=== PATIENT | male | born 1995 | race Caucasian/White ===

== ENCOUNTER 2021-03-03 10:28 | Outpatient (REF) | payer OTHER, SELFPAY ==
--- NOTE | ~2021-03-03 | XR_ITS ---
EXAMINATION: XR ABDOMEN KUB CLINICAL INDICATION: Abdominal pain. COMPARISON: CT scan of 03/30/20. TECHNIQUE: AP view of the abdomen. FINDINGS: There is a normal nonobstructive bowel gas pattern. There is no significant stool burden. The lung bases are clear. There is a 0.8 cm calculus overlying the lower pole of the right kidney not significantly changed from prior CT scan. XR/XR KUB IMPRESSION: No obstruction. Stable appearance of calculus lower pole left kidney.
[2021-03-03 13:33] LABS: Eosinophils Absolute Auto 0.1 X10*3/uL (0.0-0.4); Imm Gran Abs Auto 0.01 X10*3/uL (0.00-0.03); Imm Gran Pct Auto 0.2 % (0.0-0.4); MANUAL DIFF FLAG NO; Red Cell Distribution Width 12.8 % (11.0-16.0); SCAN SMEAR FLAG 1
[2021-03-03 13:35] LABS: Basophils Percent Auto 0.4 % (0-2); Eosinophils Percent Auto 2.7 % (0-4); Hematocrit 45.4 % (42-52); Hemoglobin 14.8 g/dl (14.0-18.0); Lymphocytes Absolute Auto 1.5 X10*3/uL (1.2-4.9); Lymphocytes Percent Auto 28.2 % (20-40); Mean Corpuscular HGB Conc 32.6 g/dl (31.0-36.0); Mean Corpuscular Hemoglobin 30.1 pg (27.0-33.0); Mean Corpuscular Volume 92.5 fL (80-98); Mean Platelet Volume 13.4 fL (9.4-12.4); Monocytes Absolute Auto 0.6 X10*3/uL (0.1-1.2); Monocytes Percent Auto 10.7 % (2-11); Neutrophils Percent Auto 57.8 % (45-73); Platelet Count 169 X10*3/uL (160-400); Red Blood Count 4.91 X10*6/uL (4.60-5.80); White Blood Count 5.2 X10*3/uL (4.8-10.8)
[2021-03-03 13:36] LABS: PLT ABN DIST 1
[2021-03-03 13:46] LABS: Estimated Average Glucose 103 mg/dL; Hemoglobin A1c % 5.2 %
[2021-03-03 13:57] LABS: Alanine Aminotransferase 51 U/L (0-40); Albumin Level 4.6 g/dL (3.5-5.0); Alkaline Phosphatase 60 U/L (39-117); Anion Gap 14 (12-20); Aspartate Amino Transferase 41 U/L (5-37); Bilirubin Direct 0.4 mg/dL (0.0-0.5); Bilirubin Total 1.1 mg/dL (0.0-1.0); Blood Urea Nitrogen 9 mg/dL (9-16); Calcium 9.5 mg/dL (8.4-10.2); Carbon Dioxide 24 mmol/L (22-29); Chloride 106 mmol/L (96-108); Cholesterol 250 mg/dL; Estimated Glomerular Filt Rate > 60; Glucose Fasting 94 mg/dL (60-99); HDL Cholesterol 45 mg/dL; LDL Cholesterol Calculated 185 mg/dl; Potassium 4.1 mmol/L (3.3-5.1); Sodium 140 mmol/L (135-145); Total Protein 7.7 g/dL (6.5-8.0); Triglycerides 100 mg/dL
[2021-03-03 14:17] LABS: TSH reflex Free T4 0.48 uIU/mL (0.32-4.0)
== END 2021-03-03 10:29 | disposition home or self-care (01) ==
LOC: HO.HMGCX 10:28
PROVIDERS: PCP Physician Assistant; Visit Provider Nurse Practitioner Family
DX: Z13.29 Encounter for screening for other suspected endocrine disorder (principal); Z13.220 Encounter for screening for lipoid disorders; R10.9 Unspecified abdominal pain; E66.01 Morbid (severe) obesity due to excess calories; Z68.43 Body mass index [BMI] 50.0-59.9, adult; I10 Essential (primary) hypertension
CPT/HCPCS: 36415; 74018; 80048; 80053; 80061; 80076; 82248; 83036; 84443; 85025; 85027

== ENCOUNTER 2021-09-27 18:27 | Emergency (ER) | payer OTHER, SELFPAY ==
--- NOTE | ~2021-09-27 | CT_ITS ---
EXAMINATION: CT ABDOMEN AND PELVIS WITHOUT CONTRAST CLINICAL INFORMATION: Left flank pain COMPARISON: 03/30/2020 TECHNIQUE: Multidetector volumetric imaging was performed from the superior aspect of the liver through the pubic symphysis. Sagittal and coronal reformatted images were obtained on the technologist's workstation. This CT examination was performed using dose optimization techniques as appropriate, variously including the following: *Automated exposure control *Adjustment of mA and/or kV according to patient size (this includes techniques or standardized protocols for targeted exams where dose is matched to indication/reason for exam; i.e. extremities or head) *Use of iterative reconstruction technique DLP: 949 mGy-cm FINDINGS: LUNG BASES: The visualized lung bases are unremarkable. LIVER, GALLBLADDER, AND BILIARY TREE: Liver normal in size, contour and morphology. Diffuse hepatic steatosis. No focal liver lesions. No intra or extra hepatic biliary dilatation. Gallbladder unremarkable. PANCREAS: Unremarkable. SPLEEN: Unremarkable. ADRENAL GLANDS: Unremarkable. KIDNEYS AND URETERS: The kidneys are normal in size, shape, and attenuation. There is a stable 9 mm (maximal diameter) 800 Hounsfield unit nonobstructing calculus in the lower pole left kidney and a punctate nonobstructive calculus in the upper pole right kidney. No hydronephrosis or hydroureter. No perinephric stranding. BLADDER: Unremarkable. GASTROINTESTINAL TRACT: The small and large bowel are unremarkable. The appendix is unremarkable. ABDOMINAL WALL: No significant hernia is appreciated. LYMPH NODES: Normal. VASCULAR: Unremarkable. PELVIC VISCERA: Unremarkable. OSSEOUS STRUCTURES: No acute or suspicious osseous abnormalities. CT/CT abdomen pelvis wo con IMPRESSION: * No acute findings within the abdomen or pelvis to explain the patient's symptomatology. * Hepatic steatosis. * No significant change in the bilateral nonobstructive intrarenal calculi. * No ureteral calculi or hydronephrosis.
[2021-09-27 19:49] VITALS: BP 122/68; PULSE 83; RESP 16; TEMP 37.1; O2SAT 100; BMI 50.5
[2021-09-27 20:12] LABS: MANUAL DIFF FLAG NO
[2021-09-27 20:14] LABS: Basophils Percent Auto 0.3 % (0-2); Eosinophils Percent Auto 0.3 % (0-4); Hematocrit 42.7 % (42.0-52.0); Hemoglobin 14.1 g/dl (14.0-18.0); Imm Gran Abs Auto 0.01 X10*3/uL (0.00-0.03); Imm Gran Pct Auto 0.1 % (0.0-0.4); Lymphocytes Absolute Auto 1.5 X10*3/uL (1.2-4.9); Lymphocytes Percent Auto 18.9 % (20-40); Mean Corpuscular Hemoglobin 30.1 pg (27.0-33.0); Mean Platelet Volume 12.5 fL (9.4-12.4); Monocytes Absolute Auto 0.7 X10*3/uL (0.1-1.2); Monocytes Percent Auto 9.4 % (2-11); Neutrophils Absolute Auto 5.5 x10*3/uL (2.0-8.3); Platelet Count 214 X10*3/uL (160-400); Red Blood Count 4.69 X10*6/uL (4.60-5.80); Red Cell Distribution Width 12.5 % (11.0-16.0); White Blood Count 7.7 X10*3/uL (4.8-10.8)
[2021-09-27 20:27] LABS: Alanine Aminotransferase 31 U/L (0-40); Albumin Level 4.6 g/dL (3.5-5.0); Alkaline Phosphatase 60 U/L (39-117); Anion Gap 12 (12-20); Aspartate Amino Transferase 32 U/L (5-37); Bilirubin Total 0.6 mg/dL (0.0-1.0); Blood Urea Nitrogen 10 mg/dL (9-16); Calcium 9.9 mg/dL (8.4-10.2); Carbon Dioxide 27 mmol/L (22-29); Chloride 103 mmol/L (96-108); Creatinine Clr Calc Pharmacy 146.3; Estimated Glomerular Filt Rate > 60; Glucose Random 119 mg/dL (60-115); Potassium 4.1 mmol/L (3.3-5.1); Sodium 138 mmol/L (135-145); Total Protein 8.1 g/dL (6.5-8.0)
--- NOTE | 2021-09-28 01:29 | ED_ITS ---
HPI - Abdominal Pain General Chief Complaint: Abdominal Pain Stated Complaint: cramps and constipation Time Seen by Provider: 09/28/21 01:29 Source: patient Mode of arrival: ambulatory Limitations: no limitations History of Present Illness HPI narrative: Patient with abdominal cramping that he feels in the back. maria elena pineda states that his pain was bothering him more than usual. Patient states that he had a prior CT scan that showed kidney stones. No Hematuria, no dysuria, no fever no vomiting. patient feels that he has been constipated for months. MD elicited complaint: abdominal pain and other (back pain) Pertinent past history: constipation and kidney stones Onset (ago): month(s) Pain Consistency: intermittent Location: epigastric Severity: mild Quality: aching Radiation: none Relieving factors: other (bowel movement.) Associated symptoms: constipation Related Data Allergies Allergy/AdvReac Type Severity Reaction Status Date / Time No Known Allergies Allergy Verified 09/27/21 19:55 Review of Systems Constitutional: Reports no additional constitutional complaints Eyes: Reports no additional eye complaints Denies dizziness Cardiovascular: Reports no additional cardiovascular complaints Respiratory: Reports as per HPI Gastrointestinal: Reports no additional gastrointestinal complaints Musculoskeletal: Reports no additional musculoskeletal complaints Skin/Breast: Denies rash Reports system reviewed and no additional complaints, except as documented, Denies dizziness and Denies Sensory deficit (Neuro) Psychiatric: Denies anxiety Physical Exam Vital Signs: Vital Signs: Last Vital Signs Temp 98.8 F 09/27/21 19:49 Pulse 92 09/28/21 01:43 Resp 16 09/27/21 19:49 BP 157/76 H 09/28/21 01:43 Pulse Ox 98 09/28/21 01:43 BMI result Body Mass Index 50.5 Const: General: healthy appearing Nutritional Appearance: obese Orienta tion/consciousness: oriented to person and patient oriented x3 Limitations: no limitations HENMT: Head: Yes normal to inspection Ears: external ears normal General nose exam: Normal external nose present Mouth: Normal oral and palatal mucosa present and oropharynx normal Throat: Yes posterior oropharynx normal Eyes: General: appearance normal, both eyes and all related structures Neck: Other: supple Neck: Yes normal visual inspection Chest: Chest palpation & inspection: normal inspection of the chest Resp: Auscultation: clear to auscultation bilaterally Cardio: Jugular venous distension: no JVD Rate: regular rate Rhythm: regular rhythm Heart sounds: S1 normal heart sound present and S2 normal heart sound present GI: Inspection: Yes normal to inspection Palpation (GI): Soft to palpation, nontender and No hepatosplenomegaly present Auscultation: normal bowel sounds : General: Yes no CVA tenderness Back/Spine/Pelvis: Back: no CVA tenderness Skin: General skin exam: no rashes or lesions noted Neuro: General: oriented to person and patient oriented x3 Cranial nerves: Yes CN's II-XII intact bilaterally Motor exam (neuro): 5/5 motor strength present throughout Sensory Exam: No Sensory deficit (Neuro) Extrem: General: Yes normal to inspection Psych: Appearance: grossly normal Course Reevaluation(s) Reevaluation #1: labs are normal, UA normal, CT show nonobstructing kidney stone. No acute findings that explain the patients discomfort. Time: 03:00 MDM - Abdominal Pain Lab Data Result diagrams: 09/27/21 20:06 09/27/21 20:06 Labs: Lab Results 09/27/21 09/27/21 09/28/21 Range/Units 20:06 20:06 01:31 WBC 7.7 (4.8-10.8) X10*3/uL RBC 4.69 (4.60-5.80) X10*6/uL Hgb 14.1 (14.0-18.0) g/dl Hct 42.7 (42.0-52.0) % MCV 91.0 (80.0-98.0) fL MCH 30.1 (27.0-33.0) pg MCHC 33.0 (31.0-36.0) g/dl RDW 12.5 (11.0-16.0) % Plt Count 214 (160-400) X10*3/uL MPV 12.5 H (9.4-12.4) fL Immature Gran % (Auto) 0.1 (0.0-0.4) % Neut % (Auto) 71.0 (45-73) % Lymph % (Auto) 18.9 L (20-40) % [place] % (Auto) 9.4 (2-11) % Eos % (Auto) 0.3 (0-4) % Baso % (Auto) 0.3 (0-2) % Lymph # (Auto) 1.5 (1.2-4.9) X10*3/uL [place] # (Auto) 0.7 (0.1-1.2) X10*3/uL Eos # (Auto) 0.0 (0.0-0.4) X10*3/uL Baso # (Auto) 0.0 (0.0-0.2) X10*3/uL Abs Immat Gran (auto) 0.01 (0.00-0.03) X10*3/uL Absolute Neuts (auto) 5.5 (2.0-8.3) x10*3/uL Absolute Nucleated RBC 0.000 (0.0-0.012) X10*3/uL Nucleated RBC % (auto) 0.0 (0.0-0.2) /100WBC Sodium 138 (135-145) mmol/L Potassium 4.1 (3.3-5.1) mmol/L Chloride 103 (96-108) mmol/L Carbon Dioxide 27 (22-29) mmol/L Anion Gap 12 (12-20) BUN 10 (9-16) mg/dL Creatinine 0.93 (0.5-1.4) mg/dL Estim Creat Clear Calc 146.3 Estimated GFR > 60 Random Glucose 119 H (60-115) mg/dL Calcium 9.9 (8.4-10.2) mg/dL Total Bilirubin 0.6 (0.0-1.0) mg/dL AST 32 (5-37) U/L ALT 31 (0-40) U/L Alkaline Phosphatase 60 (39-117) U/L Total Protein 8.1 H (6.5-8.0) g/dL Albumin 4.6 (3.5-5.0) g/dL Urine Color YELLOW Urine Appearance CLEAR Urine pH 5.5 (5.0-8.0) Ur Specific [place] >= 1.030 H (1.005-1.025) Urine Protein TRACE (NEG-TRACE) MG/DL Urine Glucose (UA) NEG (NEG) MG/DL Urine Ketones 5 (NEG) MG/DL Urine Blood TRACE (NEG) Urine Nitrite NEG (NEG) Ur Leukocyte Esterase NEG (NEG) Urine RBC 1-4 (0) /HPF Urine WBC 1-4 (0-4) /HPF Ur Squamous Epith Cells 1+ /LPF Calcium Phosphate Cryst TRACE /LPF Urine Bacteria TRACE /LPF Urine Mucus 3+ /LPF Imaging Data CT scan - abdomen: Radiologist's impression: CT/CT abdomen pelvis wo con IMPRESSION: *? No acute findings within the abdomen or pelvis to explain the patient's symptomatology. *? Hepatic steatosis. *? No significant change in the bilateral nonobstructive intrarenal calculi. *? No ureteral calculi or hydronephrosis. Discharge Plan Discharge Clinical Impression: Abdominal pain Qualifiers: Abdominal location: generalized Qualified Code(s): R10.84 - Generalized abdominal pain Constipation Qualifiers: Constipation type: unspecified constipation type Qualified Code(s): K59.00 - Constipation, unspecified Patient Disposition: Home, Self-Care Instructions: Acute Abdominal Pain (ED), Constipation (ED) Referrals: Pollo Gonzalez PA-C [Primary Care Provider] - 5 days [facility] Social History Social History Alcohol intake: current Alcohol intake frequency: holidays/special occasions only Patient Tobacco Use Status: Never used Tobacco Use of substances other than those prescribed or required for medical reasons: No Advance Directives: No Advance Directives Information Provided: No
[2021-09-28 01:38] LABS: Appearance Urine CLEAR; Color Urine YELLOW; Glucose Urine UA NEG (NEG); Leukocyte Esterase Urine NEG (NEG); Nitrite Urine NEG (NEG); PH 5.5 (5.0-8.0); Specific Gravity - Urine >= 1.030 (1.005-1.025); UACC Culture Trigger NO; Urine Blood TRACE (NEG); Urine Ketones 5 MG/DL (NEG); Urine Protein TRACE MG/DL (NEG-TRACE)
[2021-09-28 01:43] VITALS: BP 157/76; PULSE 92; O2SAT 98
[2021-09-28 01:43] LABS: Squamous Epithelial Cell Urine 1+ /LPF
[2021-09-28 01:44] LABS: Bacteria Urine TRACE /LPF; Calcium Phosphate Crystals Ur TRACE /LPF; Mucus Urine 3+ /LPF
--- NOTE | 2021-09-28 01:47 | PC.NURSE ---
pt a&o, no sob or chest pain. no n/v. provider in to assess pt. Will continue to monitor. Ua collected and sent.
[2021-09-28] MEDS: Ketorolac Tromethamine 60 MG/2 ML VIAL IM (01:53)
--- NOTE | 2021-09-28 01:56 | PC.NURSE ---
pt medicated per mar
== END 2021-09-28 03:11 | disposition home or self-care (01) ==
PROVIDERS: Emergency Provider Emergency Medicine; PCP Physician Assistant
DX: R10.84 Generalized abdominal pain (principal); K59.00 Constipation, unspecified
CPT/HCPCS: 36415; 74176; 80053; 81001; 85025; 96372; 99284; J1885

== ENCOUNTER 2022-05-01 05:48 | Emergency (ER) | payer SELFPAY ==
--- NOTE | ~2022-05-01 | CT_ITS ---
EXAMINATION: CT ABDOMEN AND PELVIS WITHOUT CONTRAST CLINICAL INFORMATION: Hematuria. Abdominal pain. COMPARISON: Most recent CT abdomen/pelvis dated 09/28/2021. TECHNIQUE: Multidetector volumetric imaging was performed from the superior aspect of the liver through the pubic symphysis. Sagittal and coronal reformatted images were obtained on the technologist's workstation. This CT examination was performed using dose optimization techniques as appropriate, variously including the following: *Automated exposure control *Adjustment of mA and/or kV according to patient size (this includes techniques or standardized protocols for targeted exams where dose is matched to indication/reason for exam; i.e. extremities or head) *Use of iterative reconstruction technique DLP: 951 mGy-cm FINDINGS: LUNG BASES: The visualized lung bases are unremarkable. LIVER, GALLBLADDER, AND BILIARY TREE: The liver is normal in size and shape. Mild parenchymal hypoattenuation is redemonstrated consistent with steatosis. No focal hepatic lesion or biliary ductal dilatation is present. The gallbladder is unremarkable with no evidence of radiopaque gallstones, gallbladder wall thickening, or obvious pericholecystic inflammatory changes. PANCREAS: Unremarkable. SPLEEN: Unremarkable. ADRENAL GLANDS: Unremarkable. KIDNEYS AND URETERS: The kidneys are normal in size, shape, and attenuation. There is a 0.8 x 0.8 x 0.9 cm stone within the left renal pelvis measuring up to 1059 Hounsfield units and located 16.7 cm from the posterior axillary line. This stone was previously seen within the left lower pole. There is minimal prominence of the left renal pelvis with mild wall thickening and adjacent stranding, new when compared to the prior examination. No significant hydronephrosis or hydroureter. Redemonstration of a 0.2 cm right upper pole nonobstructing renal stone. No ureteral stone. No hydronephrosis, hydroureter, or calculi seen. No perinephric stranding. BLADDER: Unremarkable. GASTROINTESTINAL TRACT: No small or large bowel obstruction. No bowel wall thickening or inflammatory change. Unremarkable appendix. PERITONEAL CAVITY: No intra-abdominal free air or free fluid. No intra-abdominal mass or organized fluid collection/abscess formation. ABDOMINAL WALL: No significant hernia is appreciated. LYMPH NODES: Normal. VASCULAR: Unremarkable. PELVIC VISCERA: The prostate and seminal vesicles are unremarkable. OSSEOUS STRUCTURES: Unremarkable. CT/CT abdomen pelvis wo con IMPRESSION: 1. The previously seen left lower pole renal stone is now located within the renal pelvis measuring up to 0.9 cm. There is minimal prominence of the renal pelvis with wall thickening and adjacent fat stranding. No significant hydronephrosis or hydroureter. Stable, nonobstructing right renal stone. No right-sided hydronephrosis or hydroureter. Unremarkable urinary bladder. 2. Redemonstration of hepatic steatosis. Fleischner guidelines were followed.
[2022-05-01 05:56] VITALS: BP 133/75; PULSE 100; RESP 16; O2SAT 97; BMI 47.8
--- NOTE | 2022-05-01 06:39 | ED.MALEGU ---
HPI - Male Genitourinary General Chief complaint: Urogenital-Male Stated complaint: blood? in urine Time Seen by Provider: 05/01/22 06:36 Source: patient Mode of arrival: ambulatory Limitations: no limitations History of Present Illness HPI Narrative: 26 yo male with hx of bilateral renal stones - he reports normal urine yesterday felt fine woke up with a stomach ache today and voided with dark tea colored urine. no n/v no flank pain. He feels fine otherwise. Has not seen a urologist. Complaint: other (hematuria) Onset (ago): hour(s) (2) Duration: intermittent Severity: mild Quality: aching and dull Relieving factors: none Exacerbating factors: urination Context: other (known kidney stones) Associated symptoms: Reports blood in urine Related Data Previous Rx's Medication Instructions Recorded nitrofurantoin 100 mg PO BID 7 days #14 caps 05/01/22 monohydrate/macrocrystals 100 mg capsule (Macrobid) Allergies Allergy/AdvReac Type Severity Reaction Status Date / Time No Known Allergies Allergy Verified 05/01/22 05:59 Review of Systems Review of Systems: Constitutional : No Weight loss, No Fever, No Chills ENT/Mouth : No sore throat, No Rhinorrhea Eyes: No Swelling, No Redness Cardiovascular : No Chest Pain, No SOB, NoEdema Respiratory : No Cough, No Sputum, No Wheezing Gastrointestinal : no Nausea, no Vomiting, no Diarrhea, positive abdominal Pain, No Hematochezia, No Melena Genitourinary : No Dysuria, No Urinary Frequency, pos Hematuria, No Urgency Musculoskeletal : No joint pain, No Myalgias, No Joint Swelling Skin : No Skin Lesions, No rash Neuro : No Weakness, No Numbness, No Dizziness, No Headache Psych : No Anxiety/Panic, No Depression Heme/Lymph: No Bruising, No Lymphadenopathy Endocrine : No Polyuria, No Polydipsia All other systems reviewed and are negative. [facility] Past Medical History Attestation statement: The following information was validated with the patient. Medical History Renal colic Surgical History (Updated 11/21/21 @ 14:23 by Suzette Talbert) No history of previous surgery Family History Family History (System 11/21/21 @ 14:23 by Suzette Talbert) Mother No problems noted. Father Diabetes Social History Social History Alcohol intake: current Alcohol intake frequency: holidays/special occasions only Patient Tobacco Use Status: Never used Tobacco Advance Directives: No Current occupational status: employed Current occupation: [employer] Physical Exam Vital Signs: Vital Signs: Last Vital Signs Pulse 98 05/01/22 07:07 Resp 16 05/01/22 07:07 BP 138/78 05/01/22 07:07 Pulse Ox 99 05/01/22 07:07 O2 Del Method 05/01/22 07:07 BMI result Body Mass Index 47.8 Appearance: Alert. Oriented X3. No acute distress. Eyes: Pupils equal, round and reactive to light. ENT: Pharynx normal. Neck: Normal inspection. Neck supple. CVS: Normal heart rate and rhythm. Pulses normal. Respiratory: No respiratory distress. Breath sounds normal. Abdomen: Soft and non-tender. Skin: Skin warm and dry. Normal skin color. Normal skin turgor. Extremities: No lower extremity edema. No calf ttp Neuro: Oriented X 3. No motor deficit. No sensory deficit. Course Course Course Narrative: message sent to Urology 830am can follow up as outpatient per Urology - patient aware MDM - Male Genitourinary MDM Narrative Medical decision making narrative: 26 yo male hx of renal stones bilaterally no urologic follow up felt fine last night - normal UA, no extensive exercise - he noted a stomach ache this AM now with hematuria x 1. At this time labs, UA, CT scan for renal colic. He is in no pain and no n/v at this time. Dispo per results and findings. Lab Data Result diagrams: 05/01/22 06:36 05/01/22 06:36 Labs: Lab Results 05/01/22 05/01/22 05/01/22 Range/Units 06:36 06:36 06:36 WBC 6.3 (4.8-10.8) X10*3/uL RBC 4.67 (4.60-5.80) X10*6/uL Hgb 14.2 (14.0-18.0) g/dl Hct 42.5 (42.0-52.0) % MCV 91.0 (80.0-98.0) fL MCH 30.4 (27.0-33.0) pg MCHC 33.4 (31.0-36.0) g/dl RDW 12.2 (11.0-16.0) % Plt Count 182 (160-400) X10*3/uL MPV 12.5 H (9.4-12.4) fL Immature Gran % (Auto) 0.3 (0.0-0.4) % Neut % (Auto) 52.6 (45-73) % Lymph % (Auto) 33.8 (20-40) % [place] % (Auto) 11.7 H (2-11) % Eos % (Auto) 1.0 (0-4) % Baso % (Auto) 0.6 (0-2) % Lymph # (Auto) 2.1 (1.2-4.9) X10*3/uL [place] # (Auto) 0.7 (0.1-1.2) X10*3/uL Eos # (Auto) 0.1 (0.0-0.4) X10*3/uL Baso # (Auto) 0.0 (0.0-0.2) X10*3/uL Abs Immat Gran (auto) 0.02 (0.00-0.03) X10*3/uL Absolute Neuts (auto) 3.3 (2.0-8.3) x10*3/uL Absolute Nucleated RBC 0.000 (0.0-0.012) X10*3/uL Nucleated RBC % (auto) 0.0 (0.0-0.2) /100WBC Sodium 138 (135-145) mmol/L Potassium 4.0 (3.3-5.1) mmol/L Chloride 104 (96-108) mmol/L Carbon Dioxide 25 (22-29) mmol/L Anion Gap 13 (12-20) BUN 12 (9-16) mg/dL Creatinine 0.89 (0.5-1.4) mg/dL Estim Creat Clear Calc 146.5 Estimated GFR > 60 Random Glucose 112 (60-115) mg/dL Calcium 9.0 D (8.4-10.2) mg/dL Total Bilirubin 0.3 (0.0-1.0) mg/dL AST 30 (5-37) U/L ALT 30 (0-40) U/L Alkaline Phosphatase 59 (39-117) U/L Total Creatine Kinase 369 H (38-174) U/L Total Protein 7.6 (6.5-8.0) g/dL Albumin 4.4 (3.5-5.0) g/dL Lipase 15 (8-78) U/L Urine Color BROWN Urine Appearance Cloudy Urine pH 5.5 (5.0-8.0) Ur Specific [place] >= 1.030 H (1.005-1.025) Urine Protein 100 (2+) H (Neg-Trace) mg/dL Urine Glucose (UA) Negative (Negative) mg/dL Urine Ketones Trace (Negative) mg/dL Urine Blood Large (3+) H (Negative) Urine Nitrite Positive H (Negative) Ur Leukocyte Esterase Trace H (Negative) Urine RBC >20 H (0-2) /HPF Urine WBC 0-5 (0-5) /HPF Ur Squamous Epith Cells 0-2 (0-2) /HPF Urine Bacteria 1+ (None Seen) Hyaline Casts 0-2 (0-2) /LPF Discharge Plan Discharge Clinical Impression: Bilateral renal stones Hematuria Qualifiers: Hematuria type: gross Qualified Code(s): R31.0 - Gross hematuria Patient Disposition: Home, Self-Care Instructions: Kidney Stones (ED), Hematuria (ED) Additional Instructions: return to ED for any worsening symptoms or concerns you need to see a Urologist this stone needs to be removed you will not pass it on your own Prescriptions: New nitrofurantoin monohyd/m-cryst [Macrobid] 100 mg capsule 100 mg PO BID 7 Days Qty: 14 0RF Rx Instructions: must administer with a meal/food Referrals: Grayson Vincent MD [Physician] - 1 week Stand Alone Forms: Work/School Release
[2022-05-01 06:41] LABS: MANUAL DIFF FLAG NO
[2022-05-01 06:42] LABS: Appearance Urine Cloudy; Color Urine BROWN; Glucose Urine UA Negative (Negative); Leukocyte Esterase Urine Trace (Negative); Nitrite Urine Positive (Negative); PH 5.5 (5.0-8.0); Specific Gravity - Urine >= 1.030 (1.005-1.025); Urine Blood Large (3+) (Negative); Urine Ketones Trace mg/dL (Negative); Urine Protein 100 (2+) mg/dL (Neg-Trace)
[2022-05-01 06:49] LABS: Basophils Percent Auto 0.6 % (0-2); Eosinophils Absolute Auto 0.1 X10*3/uL (0.0-0.4); Hematocrit 42.5 % (42.0-52.0); Hemoglobin 14.2 g/dl (14.0-18.0); Imm Gran Abs Auto 0.02 X10*3/uL (0.00-0.03); Imm Gran Pct Auto 0.3 % (0.0-0.4); Lymphocytes Absolute Auto 2.1 X10*3/uL (1.2-4.9); Lymphocytes Percent Auto 33.8 % (20-40); Mean Corpuscular HGB Conc 33.4 g/dl (31.0-36.0); Mean Corpuscular Hemoglobin 30.4 pg (27.0-33.0); Mean Platelet Volume 12.5 fL (9.4-12.4); Monocytes Absolute Auto 0.7 X10*3/uL (0.1-1.2); Monocytes Percent Auto 11.7 % (2-11); Neutrophils Absolute Auto 3.3 x10*3/uL (2.0-8.3); Neutrophils Percent Auto 52.6 % (45-73); Platelet Count 182 X10*3/uL (160-400); Red Blood Count 4.67 X10*6/uL (4.60-5.80); Red Cell Distribution Width 12.2 % (11.0-16.0); White Blood Count 6.3 X10*3/uL (4.8-10.8)
[2022-05-01 06:53] LABS: Bacteria Urine 1+ (None Seen); Hyaline Casts Urine 0-2 /LPF (0-2); RBC Urine >20 /HPF (0-2); Squamous Epithelial Cell Urine 0-2 /HPF (0-2); UACC Culture Trigger YES; WBC Urine 0-5 /HPF (0-5)
[2022-05-01 07:03] LABS: Alanine Aminotransferase 30 U/L (0-40); Albumin Level 4.4 g/dL (3.5-5.0); Alkaline Phosphatase 59 U/L (39-117); Anion Gap 13 (12-20); Aspartate Amino Transferase 30 U/L (5-37); Bilirubin Total 0.3 mg/dL (0.0-1.0); Blood Urea Nitrogen 12 mg/dL (9-16); Carbon Dioxide 25 mmol/L (22-29); Chloride 104 mmol/L (96-108); Creatinine Clr Calc Pharmacy 146.5; Estimated Glomerular Filt Rate > 60; Glucose Random 112 mg/dL (60-115); Lipase 15 U/L (8-78); Sodium 138 mmol/L (135-145); Total Protein 7.6 g/dL (6.5-8.0)
[2022-05-01 07:07] VITALS: BP 138/78; PULSE 98; RESP 16; O2SAT 99
== END 2022-05-01 09:17 | disposition home or self-care (01) ==
PROVIDERS: Emergency Provider Emergency Medicine; PCP Physician Assistant
DX: R31.0 Gross hematuria (principal); N20.0 Calculus of kidney
CPT/HCPCS: 36415; 74176; 80053; 81001; 82550; 83690; 85025; 87086; 99283; 99284

== ENCOUNTER → 2022-06-13 13:41 | Outpatient (BNVA) | payer SELFPAY | PROVIDERS: PCP Physician Assistant; Visit Provider Urology | DX: N20.0 Calculus of kidney (principal) | CPT/HCPCS: 99202 ==

== ENCOUNTER 2022-07-17 06:56 | Day surgery (SDC) | payer OTHER, SELFPAY ==
--- NOTE | 2022-07-16 10:51 | HO.ANESPROP2 ---
Documented by User: Meagan Marshall NP 07/16/22 10:51 HPI - Anesthesia Eval Consult details Narrative: 26yo M for Left ESWL PMFSH Active Problems Active Problems: All Active Problems (Updated 06/13/22 @ 14:03 by Grayson Vincent MD) Nephrolithiasis (Acute) Renal colic (Acute) Annual physical exam (Acute) Obese (Acute) Screening for diabetes mellitus (DM) (Acute) Screening for hypercholesterolemia (Acute) Screening for hypothyroidism (Acute) Abdominal discomfort (Acute) Past Medical History Medical History Renal colic Family History Family History Mother No problems noted. Father Diabetes Surgical History Surgical History (Updated 07/17/22 @ 09:12 by eDe Scherer MD) History of dental surgery No history of previous surgery Social History Social History Alcohol intake: current Alcohol intake frequency: does not drink Patient Tobacco Use Status: Never used Tobacco Current occupational status: employed Current occupation: [employer] Meds Allergies Allergy/AdvReac Type Severity Reaction Status Date / Time No Known Allergies Allergy Verified 06/10/22 13:31 Exam Exam Date and Time: July 16, 2022 1051 Assessment and Plan Assessment Anesthesia Assessment: Chart Reviewed Documented by User: Dee Scherer MD 07/17/22 09:16 PMFSH Active Problems Active Problems: All Active Problems (Updated 06/13/22 @ 14:03 by Grayson Vincent MD) Nephrolithiasis (Acute) Renal colic (Acute) Annual physical exam (Acute) Morbid Obesity BMI 47.8 Screening for diabetes mellitus (DM) (Acute) Screening for hypercholesterolemia (Acute) Screening for hypothyroidism (Acute) Abdominal discomfort (Acute) Denies ESTELA. Unaware if snores Past Medical History Medical History Renal colic Family History Family History Mother No problems noted. Father Diabetes Family history of problems with anesthesia: No Surgical History Surgical History (Updated 07/17/22 @ 09:12 by Dee Scherer MD) History of dental surgery No history of previous surgery History of Problems with Anesthesia: No Social History Social History Alcohol intake: current Alcohol intake frequency: does not drink Patient Tobacco Use Status: Never used Tobacco Current occupational status: employed Current occupation: [employer] Meds Allergies Allergy/AdvReac Type Severity Reaction Status Date / Time No Known Allergies Allergy Verified 06/10/22 13:31 Exam Height,Weight and Vital Signs: Height 5 ft 3 in Weight 122.47 kg Vital Signs Temp Pulse Resp BP Pulse Ox O2 Del Method 07/17/22 07:25 98.2 F 90 17 156/97 H 99 Room Air Airway Mallampati Class: III (Bluish discoloration of tongue. Denies any food this am. States either toothpaste or cake from yesterday ) TM Dist: >3cm Neck ROM: Full Loose/Missing/Broken Teeth: No (Denies broken or loose teeth) Heart: RRR Lungs: CTAB Assessment and Plan Assessment Anesthesia Assessment: Anesthesia Plan Discussed Final Anesthetic Review Family History of Problems with Anesthesia: No History of Problems with Anesthesia: No NPO: Yes ASA Class: III Final Preanesthetic Review: No Changes in Pt Med Stat, Meds/Allgs Chart Reviewed, Consent Obtained/Reviewed and Anes Risks/Benef Reviewed Patient Risk: Intermediate Procedure Risk: Low Assessment/Block/Sedation in SS: Assess/Block/Sedation-SS Anesthetic Plan Anesthetic Plan: GA Disposition: Standard PACU
[2022-07-17] VITALS (7 sets, daily range): BP systolic 143–159; BP diastolic 83–99; PULSE 86–98; RESP 16–20; TEMP 36.1–36.8; O2SAT 95–100; BMI 47.8
--- NOTE | ~2022-07-17 | XR_ITS ---
EXAMINATION: XR ABDOMEN KUB CLINICAL INDICATION: Left renal calculus COMPARISON: CT abdomen and pelvis noncontrast 05/01/2022 TECHNIQUE: AP x3 views of the abdomen. FINDINGS: There is an oval calculus overlying lower pole left kidney measuring approximately 1.0 x 0.7 cm. There are no other visible urinary tract calculi. The lung bases appear clear. Bowel gas unremarkable. No acute bony abnormality. Scattered calcified phleboliths again noted in the pelvis similar to the CT. XR/XR KUB IMPRESSION: Oval calculus overlying lower pole left kidney approximately 1.0 x 0.7 cm.
[2022-07-17] MEDS: Lactated Ringers 1,000 ML 100 ML IVCONT (07:38)
--- NOTE | 2022-07-17 09:40 | MHC.SHP ---
Pre-Procedural Eval Section A Date of Service: 07/17/22 The patient is an INPATIENT: No Changes since office visit: No Cold of Flu in the past 2 weeks, No New Medical Problems, No Changes in Medication and No Patient answered all questions The History & Physical has been completed within 30 days and I have reviewed it.: No Section B Chief Complaint: Calculus of kidney Details of Present Illness: left renal stone Relevant Family History (Specify if Yes): No Relevant Social History: None Present Medications: see Short Stay Collaborative assessment Medical History: No relevant PMH History of Previous Operations: No relevant previous surgery Allergies: Allergies Allergy/AdvReac Type Severity Reaction Status Date / Time No Known Allergies Allergy Verified 06/10/22 13:31 Review of Systems Sugical H&P ROS: Negative: Constitution, Cardiovascular, Respiratory, Neurological, Psychiatric, Hem-Onc, Allergic/Immunologic, Gastrointestinal, Genitourinary, Musculoskeletal, Integumentary, Endocrine and Eyes/Ears/Nose/Throat Exam Surgical H&P Exam: Normal: HEENT, Normal: Heart, Normal: Lungs, Normal: Extremities, Normal: Abdomen, Normal: Skin and Normal: Neurological Plan Diagnosis/Plan: Unchanged (left renal stone) I have reviewed the history and physical and performed a pertinent physical examination on my patient. No changes have occurred unless specified.
[2022-07-17] MEDS: Phenazopyridine HCL 100 MG TABLET PO (11:01)
[2022-07-17] MEDS: Acetaminophen 325 MG TABLET 650 MG PO (11:01)
--- NOTE | 2023-11-07 17:39 | P.OP_ITS ---
Operative Note Operative Note Date of Service: 07/17/22 Narrative: PreOperative Diagnosis: Left Renal stones Post Operative Diagnosis: Left Renal stones Procedure: Left ESWL Surgeon: Dr Grayson Vincent Anesthesia: mac/sedation Indications for procedure: The patient understands ESWL may be a staged procedure and subsequent intervention may be required based on imaging after ESWL. Quoted stone clearance rates for a solitary procedure are in the 70-80% range based primarily on stone location. They also understand there is a risk of bleeding to the kidney, infection, damage to adjacent organs, and stone migration following the procedure. - Imaging 5 mm stone Procedure: After informed consent was verified the patient was brought to the operating room and placed in a supine position. Anesthesia was performed per protocol. Safety pause time-out was performed. Imaging was displayed in the room and la terality confirmed. ESWL was performed. The 1st 500 shocks were performed at 60 hertz. These were performed with increasing power. Once maximum power was reached the rate was increased to 180 hertz. A total of 2500 shocks were given. Targeted imaging with ultrasound/fluoroscopy showed stone smudging suggestive of disintegration. The patient tolerated the procedure well and was transferred to the recovery area upon completion. Post procedure imaging will be organized. There was no evidence for flank discoloration.
== END 2022-07-17 11:53 | disposition home or self-care (01) ==
PROVIDERS: PCP Physician Assistant; Visit Provider Urology
PROC: (CPT 50590; principal; 2022-07-17 09:00)
DX: N20.0 Calculus of kidney (principal)
CPT/HCPCS: 50590; 74018; J0330; J1885; J1940; J2250; J2405; J3010

== ENCOUNTER → 2022-07-17 06:56 | Outpatient (BNV) | payer OTHER, SELFPAY | PROVIDERS: PCP Physician Assistant; Visit Provider Urology | DX: N20.0 Calculus of kidney (principal) | CPT/HCPCS: 50590 ==

== ENCOUNTER 2022-08-02 14:28 | Outpatient (REF) | payer OTHER, SELFPAY ==
--- NOTE | ~2022-08-02 | US_ITS ---
EXAMINATION: US RETROPERITONEAL LIMITED (RENAL ONLY) CLINICAL INFORMATION: Calculus of kidney. COMPARISON: X-ray [facility] 07/17/2022 and 03/03/2021. CT abdomen and pelvis 05/01/2022. TECHNIQUE: Real-time imaging of the kidneys. Limited visualization due to bowel gas and body habitus. FINDINGS: RIGHT KIDNEY: 10.8 x 5.9 x 5.0 cm (SAG x AP x TRV). Right renal 0.3 cm echogenic focus, possibly a nonobstructive calculus. No hydronephrosis. Limited visualization. LEFT KIDNEY: 10.7 x 6.1 x 5.1 cm (SAG x AP x TRV). 3 left renal lower pole echogenic foci characteristic of calculi measure 1.0 cm, 0.6 cm and 0.5 cm. No hydronephrosis. Limited visualization. US/US renal BI IMPRESSION: Multiple left renal calculi. Possible right renal calculus. No hydronephrosis. Limited visualization.
== END 2022-08-02 14:29 | disposition home or self-care (01) ==
LOC: HO.US 14:28
PROVIDERS: Visit Provider Urology
DX: N20.0 Calculus of kidney (principal)
CPT/HCPCS: 76775

== ENCOUNTER 2022-10-08 14:22 | Emergency (ER) | payer OTHER, SELFPAY ==
[2022-10-08 15:16] VITALS: BP 185/113; PULSE 110; RESP 18; TEMP 36.5; O2SAT 98; BMI 47.8
--- NOTE | 2022-10-08 15:18 | ED_ITS ---
HPI - Wound/Laceration General Chief Complaint: Wound/Laceration <CAITLIN Ga - Last Filed: 10/08/22 15:19> Stated Complaint: L hand lac-work inj <CAITLIN Ga Last Filed: 10/08/22 15:19> Time Seen by Provider: 10/08/22 18:27 <CAITLIN Ga - Last Filed: 10/08/22 15:19> Source: patient <CAITLIN More Last Filed: 10/08/22 19:25> Mode of arrival: ambulatory <CAITLIN More Last Filed: 10/08/22 19:25> Limitations: no limitations <CAITLIN More Last Filed: 10/08/22 19:25> History of Present Illness HPI narrative: 26-year-old male presents with a laceration to his left hand between his 1st and 2nd finger in the webspace, patient tells me he was opening a container with a box order person and he accidentally cut his hand. Tells me he is up to date on a tetanus shot. Denies numbness or tingling. Denies difficulty with moving wrist, or fingers. Patient not on blood thinners. Patient not a diabetic. <CAITLIN More Last Filed: 10/08/22 19:25> Related Data Home Medications: Previous Rx's Medication Instructions Recorded naproxen 500 mg tablet 500 mg PO BID PRN pain 7 days #14 07/17/22 tabs phenazopyridine 100 mg tablet 100 mg PO TID PRN Spasm 4 days #12 07/17/22 (Pyridium) tabs tamsulosin 0.4 mg capsule 0.4 mg PO BEDTIME 14 days #14 caps 07/17/22 tramadol 50 mg tablet 50 mg PO Q6H PRN pain (scale score 07/17/22 1-3) #8 tabs pyridoxine (vitamin B6) 100 mg 100 mg PO DAILY 90 days #90 tabs 08/16/22 tablet <CAITLIN Ga Last Filed: 10/08/22 15:19> Allergies/Adverse Reactions: Allergies Allergy/AdvReac Type Severity Reaction Status Date / Time No Known Allergies Allergy Verified 06/10/22 13:31 <CAITLIN Ga - Last Filed: 10/08/22 15:19> Review of Systems Review of Systems: Constitutional : No Fever, No Chills, Cardiovascular : No Chest Pain, No SOB Respiratory : No Dyspnea Gastrointestinal : No abdominal pain Musculoskeletal : No Joint Swelling Skin : No rash, positive skin laceration Neuro : No Weakness, No Numbness Psych : No SI/HI <CAITLIN More - Last Filed: 10/08/22 19:25> Yes all other systems are reviewed and are negative <CAITLIN More - Last Filed: 10/08/22 19:25> FORMERLY [facility] Past Medical History Attestation statement: The following information was validated with the patient. <CAITLIN Hoyt - Last Filed: 10/08/22 19:25> Source: old records reviewed and nursing notes reviewed <CAITLIN More - Last Filed: 10/08/22 19:25> Medical History: Medical History Renal colic <CAITLIN Ga - Last Filed: 10/08/22 15:19> Surgical History: Surgical History History of dental surgery No history of previous surgery <CAITLIN Ga - Last Filed: 10/08/22 15:19> Family History Family History: Family History Mother No problems noted. Father Diabetes <CAITLIN Ga - Last Filed: 10/08/22 15:19> Social History Social History: Social History Alcohol intake: current Alcohol intake frequency: does not drink Patient Tobacco Use Status: Never used Tobacco Advance Directives: No Advance Directives Information Provided: No Current occupational status: employed Current occupation: [employer] <CAITLIN Ga - Last Filed: 10/08/22 15:19> Physical Exam Vital Signs: Vital Signs: Last Vital Signs Temp 97.7 F 10/08/22 15:16 Pulse 110 H 10/08/22 15:16 Resp 18 10/08/22 15:16 BP 153/87 H 10/08/22 19:12 Pulse Ox 98 10/08/22 15:16 O2 Del Method 10/08/22 19:12 BMI result Body Mass Index 47.8 <CAITLIN Ga - Last Filed: 10/08/22 15:19> Vital Signs: Last Vital Signs Temp 97.7 F 10/08/22 15:16 Pulse 110 H 10/08/22 15:16 Resp 18 10/08/22 15:16 BP 153/87 H 10/08/22 19:12 Pulse Ox 98 10/08/22 15:16 O2 Del Method 10/08/22 19:12 BMI result Body Mass Index 47.8 Patient is noted to be tachycardic likely secondary to pain <CAITLIN More - Last Filed: 10/08/22 19:25> Appearance: Alert.? Oriented X3.? No acute distress.? Head: Normocephalic, atraumatic, no step-offs or deformities Eyes: Pupils equal, round and reactive to light.? CVS: Normal heart rate and rhythm.? Pulses normal.? Respiratory: No respiratory distress.? Breath sounds normal.? Abdomen: Soft and nontender.? Skin: Skin warm and dry.? Normal skin color.? Normal skin turgor.? + 4 cm superficial lac to left hand dorsal aspect between 1st and 2nd webspace . Full range of motion to bilateral wrist, fingers. 2+ radial pulses equal bilateral. No wrist drop. Capillary refill less than 2 seconds. Extremities: No lower extremity edema.? No calf ttp. 5/5 strength to bilateral upper and lower extremities Neuro: Oriented X 3.? No motor deficit.? No sensory deficit. CN 2-12 intact <CAITLIN More - Last Filed: 10/08/22 19:25> Course Course Course Narrative: RME - 26 yo right hand dominant male presenting with a laceration to the base of his left thumb sustained at work with a box order person. Seen at the clinic at work who wrapped it up and told him he needs sutures. Has normal ROM of the thumb. UTD on tetanus. <CAITLIN Ga - Last Filed: 10/08/22 15:19> Reevaluation(s) Reevaluation #1: Laceration closed well with Steri-Strips. No longer bleeding. Patient tolerated procedure well. Advised him to keep dressing on for 48 hours. Educated patient on diagnosis and treatment plan, answered all question, patient verbalizes understanding. At this time patient will be discharged home, advised to return with new or worsening symptoms. Educated on worrisome signs and symptoms and when to return. At this time I feel comfortable discharge home. To note there is no indication for antibiotics. <CAITLIN More Last Filed: 10/08/22 19:25> Time: : <CAITLIN More Last Filed: 10/08/22 19:25> Medical Decision Making Medical Decision Making MDM Narrative: 26-year-old male presents with work related injury, accidental laceration to the dorsal aspect of left hand between the 1st and 2nd digit webspace Physical exam significant for 4 cm superficial lac to left hand dorsal aspect between 1st and 2nd webspace . Full range of motion to bilateral wrist, fingers. 2+ radial pulses equal bilateral. No wrist drop. Capillary refill less than 2 seconds. Likely simple laceration. Unlikely foreign body, fracture dislocation. I did discuss sutures versus Steri-Strips with patient, I explained to him sutures might heal better in terms of cosmetics, however skin can be approximated well with Steri-Strips. Patient chose Steri-Strips. Patient was given his <CAITLIN More - Last Filed: 10/08/22 19:25> Differential Diagnosis Differential Diagnoses: The differential diagnosis associated with the presentation includes <CAITLIN More Last Filed: 10/08/22 19:25> Likely simple laceration. Unlikely foreign body, fracture dislocation. <CAITLIN More Last Filed: 10/08/22 19:25> Admission/Observation Consideration of admission/observation: Escalation of care including admission/observation considered <CAITLIN More Last Filed: 10/08/22 19:25> No reason for admission <CAITLIN More Last Filed: 10/08/22 19:25> Tests considered The following testing was considered but not selected: X-ray of left hand however not indicated as patient does not have painful range of motion, unlikely fracture, dislocation or foreign body. <CAITLIN More - Last Filed: 10/08/22 19:25> Core Measures AMI core measures followed: Yes <CAITLIN More - Last Filed: 10/08/22 19:25> Measure exclusions: not indicated <CAITLIN More Last Filed: 10/08/22 19:25> Discharge Plan Discharge Clinical Impression: Laceration, Work related injury <CAITLIN Ga Last Filed: 10/08/22 15:19> Patient Disposition: Home, Self-Care <CAITLIN Ga Last Filed: 10/08/22 15:19> Additional Instructions: Take your medications as prescribed. If you were prescribed antibiotics today, it is important that you take your medication to their entirety, do not skip any doses, do not finish them early. Follow-up with your primary care provider this week. Return to the emergency department with new or worsening symptoms. Such as fevers, chills, chest pain, shortness of breath, nausea, vomiting, dizziness, headache, vision changes, lethargy In case of emergency call 911 Please leave dressing on for 48 hours. You received your tetanus shot today. <CAITLIN Ga - Last Filed: 10/08/22 15:19> Prescriptions: No Action tramadol 50 mg tablet 50 mg PO Q6H PRN (Reason: pain (scale score 1-3)) Qty: 8 0RF tamsulosin 0.4 mg capsule 0.4 mg PO BEDTIME 14 Days Qty: 14 0RF phenazopyridine [Pyridium] 100 mg tablet 100 mg PO TID PRN (Reason: Spasm) 4 Days Qty: 12 0RF naproxen 500 mg tablet 500 mg PO BID PRN (Reason: pain) 7 Days Qty: 14 0RF pyridoxine (vitamin B6) 100 mg tablet 100 mg PO DAILY 90 Days Qty: 90 1RF <CAITLIN Ga Last Filed: 10/08/22 15:19> Referrals: Pollo Gonzalez PA-C [Primary Care Provider] - 2 days <CAITLIN Ga Last Filed: 10/08/22 15:19> Stand Alone Forms: Work/School Release <CAITLIN Ga - Last Filed: 10/08/22 15:19>
[2022-10-08 19:12] VITALS: BP 153/87
== END 2022-10-08 19:41 | disposition home or self-care (01) ==
PROVIDERS: Emergency Provider Emergency Medicine; PCP Physician Assistant
DX: S61.012A Laceration without foreign body of left thumb without damage to nail, initial encounter (principal); S61.412A Laceration without foreign body of left hand, initial encounter; W26.0XXA Contact with knife, initial encounter; Y93.9 Activity, unspecified; Y92.9 Unspecified place or not applicable; Y99.0 Civilian activity done for income or pay
CPT/HCPCS: 12001; 99282

== ENCOUNTER 2022-12-25 10:54 | Outpatient (REF) | payer OTHER, SELFPAY ==
--- NOTE | ~2022-12-25 | US_ITS ---
EXAMINATION: US RETROPERITONEAL LIMITED (RENAL ONLY) CLINICAL INFORMATION: Calculus of kidney. COMPARISON: X-ray abdomen [facility] same date. Renal ultrasound 08/02/2022. CT abdomen and pelvis 05/01/2022. TECHNIQUE: Real-time imaging of the kidneys. FINDINGS: RIGHT KIDNEY: 11.3 x 5.5 x 5.7 cm (SAG x AP x TRV). The kidney is normal in size, contour, and echogenicity. Renal cortical thickness is normal. Small 3 mm stone in the upper pole. No focal parenchymal lesions or hydronephrosis. LEFT KIDNEY: 11.7 x 5.3 x 5.2 cm (SAG x AP x TRV). The kidney is normal in size, contour, and echogenicity. Renal cortical thickness is normal. 3 small stones in the lower pole largest measuring 5 x 3 x 6 mm No focal parenchymal lesions or hydronephrosis. US/US renal BI IMPRESSION: Small bilateral renal stones
--- NOTE | ~2022-12-25 | XR_ITS ---
EXAMINATION: XR ABDOMEN COMPLETE CLINICAL INDICATION: Reason for Exam N20.0 - Calculus of kidney COMPARISON: [facility] 07/17/2022 TECHNIQUE: AP view of the abdomen. FINDINGS: Lines or devices: None. Nonobstructive bowel gas pattern. Mild colonic stool burden. 4 mm calcification overlying the left lower renal pole is decreased in size from prior previously 1.2 cm and may reflect a small renal stone. Few stable calcified phleboliths in the pelvis. XR/XR [facility] IMPRESSION: 1. 4 mm calcification overlying the left lower renal pole is decreased in size from prior previously 1.2 cm and may reflect a small renal stone.
== END 2022-12-25 10:55 | disposition home or self-care (01) ==
LOC: HO.US 10:54
PROVIDERS: PCP Physician Assistant; Visit Provider Urology
DX: N20.0 Calculus of kidney (principal)
CPT/HCPCS: 74018; 76775